=== PATIENT | female | born 1960 | race Two or more races ===

== ENCOUNTER 2017-02-05 15:57 | Emergency (ER) | payer MEDICARE, MEDICAID ==
[~2017-02-05] VITALS: Ht 144.8 cm; Wt 47.6 kg
--- NOTE | 2017-02-05 16:03 | NUR ---
ARRIVAL PT ARRIVED AMBULATORY TO ER 5 C/O MOUTH PAIN X 4 DAYS. ULCER LIKE AREA NOTED TO LEFT SIDE OF TONGUE. NO ACUTE DISTRESS NOTED. EDP NOTIFIED OF PT ARRIVAL.
--- NOTE | 2017-02-05 16:20 | ER.PDOC ---
General Chief Complaint: Sore Throat Stated Complaint: MOUTH PAIN W/SWELLING TRAVEL OUT OF US: No Time seen by MD: 16:13 Source: patient Exam Limitations: no limitations History of Present Illness Timing/Duration: 1 week Severity: moderate Associated Symptoms: denies symptoms Allergies: Coded Allergies: acetaminophen (Verified Allergy, Unknown, Rash, 02/05/17) hydrocodone (Verified Allergy, Unknown, Rash, 02/05/17) Home Meds Unable to Obtain Active Prescriptions or Reported Meds Past Medical History Medical History: COPD, fibromyalgia, GERD Surgical History: no surgical history LMP (females 10-50): postmenopause Family History Significant Family History: no pertinent family hx Social History Smoking: less than 1 pack/day Alcohol Use: none Drug Use: marijuana Review of Systems Constitutional: denies fever EENTM: mouth pain Respiratory: denies cough Cardiovascular: denies chest pain Gastrointestinal: denies abdominal pain Genitourinary: denies discharge Psychiatric/Neurological: denies anxiety All Other Systems: Reviewed and Negative Physical Exam General Appearance: No Apparent Distress, WD/WN EENT: eyes nml inspection, nml ENT inspection Neck: Non-Tender, Full Range of Motion Respiratory: chest non-tender CVS: reg rate & rhythm, no murmur Gastrointestinal: Normal Bowel Sounds Back: Normal Inspection Neurologic/Psychiatric: drafter electromechanical II-XII NML as Tested, Motor Weakness Comments ulcer L side of tongue whitish well demarcated Progress Progress tiamcinolone viscous lido Departure Time of Disposition: 16:35 Disposition: 01 HOME, SELF-CARE Impression: Primary Impression: Stomatitis Condition: Stable Referrals: PCP,UNKNOWN (PCP) PRIMARY CARE PROVIDER Scripts Unable to Obtain Active Prescriptions or Reported Meds YEVGENIY MOMIN Dr., MD Feb 05, 2017 16:20
[2017-02-05 16:45] VITALS: BP 140/82
== END 2017-02-05 16:42 | disposition home or self-care (01) ==
LOC: ER 15:57
DX: K12.1 Other forms of stomatitis (principal); J44.9 Chronic obstructive pulmonary disease, unspecified; K21.9 Gastro-esophageal reflux disease without esophagitis; M79.7 Fibromyalgia; F17.200 Nicotine dependence, unspecified, uncomplicated; F12.10 Cannabis abuse, uncomplicated; Z88.8 Allergy status to other drugs, medicaments and biological substances
CPT/HCPCS: 99283

== ENCOUNTER 2018-05-10 05:52 | Emergency (ER) | payer BC, MEDICAID ==
[~2018-05-10] VITALS: Ht 144.8 cm; Wt 54.0 kg
[2018-05-10 06:01] VITALS: BP 129/93
[2018-05-10] MEDS ORDERED: LANS15CA66 PO (06:15)
--- NOTE | 2018-05-10 06:47 | ER.PDOC ---
General Chief Complaint: Sore Throat Stated Complaint: MOUTH PAIN Time seen by MD: 06:39 Source: patient Exam Limitations: no limitations History of Present Illness Initial Comments Mouth pain for 4 days Timing/Duration: gradual Severity: moderate Allergies: Coded Allergies: acetaminophen (Verified Allergy, Unknown, Rash, 02/05/17) hydrocodone (Verified Allergy, Unknown, Rash, 02/05/17) Home Meds Reported Medications Lansoprazole (PREVACID) 15 Mg Capsule.dr, 1 CAP PO DAILY, #30 CAP 3 Refills 05/10/18 Past Medical History Medical History: COPD, GERD Surgical History: hysterectomy LMP (females 10-50): hysterectomy Social History Smoking: less than 1 pack/day Alcohol Use: none Drug Use: marijuana Constitutional: no symptoms reported Nose: no symptoms reported Mouth: see HPI Throat: no symptoms reported Respiratory: no symptoms reported Cardiovascular: no symptoms reported Gastrointestinal: no symptoms reported All Other Systems: Reviewed and Negative Physical Exam General Appearance: alert, no distress Head/Neck: head nml inspection, neck nml inspection, trachea midline, no lymphadenopathy, thyroid nml Throat: pharynx nml, voice nml, no airway problems Respiratory: no resp. distress, lungs clear CVS: reg. rate & rhythm, heart sounds nml Abdomen: non-tender, no organomegaly Extremities: non-tender, ROM nml Skin Exam: Normal Color, Warm/Dry NEURO/PSYCH: oriented X3, mood/effect nml Comments Cols sore under right side of tongue. Departure Time of Disposition: 06:43 Disposition: 01 HOME, SELF-CARE Impression: Primary Impression: Herpes simplex labialis Condition: Stable Referrals: PCP,UNKNOWN (PCP) PRIMARY CARE PROVIDER Additional Instructions: Lidocaine solution Famciclovir F/U with your PCP in 2-3 days Duration or Time Spent with Pa: 30 mins ELE JAMES MD May 10, 2018 06:47
[2018-05-10 07:08] VITALS: BP 129/93
== END 2018-05-10 07:00 | disposition home or self-care (01) ==
LOC: ER 05:52
DX: B00.1 Herpesviral vesicular dermatitis (principal); J44.9 Chronic obstructive pulmonary disease, unspecified; K21.9 Gastro-esophageal reflux disease without esophagitis; F17.210 Nicotine dependence, cigarettes, uncomplicated; F12.10 Cannabis abuse, uncomplicated; Z90.710 Acquired absence of both cervix and uterus; Z88.5 Allergy status to narcotic agent; Z88.6 Allergy status to analgesic agent; Z79.899 Other long term (current) drug therapy
CPT/HCPCS: 99283